=== PATIENT | female | born 1930 | race Two or more races ===

== ENCOUNTER → 2018-08-20 | Outpatient (CLI) | payer OTHER ==
[2018-08-20 13:22] LABS: ABSOLUTE EOSINOPHILS # (AUTO) 0.1 10^3/uL (0.0-0.6); ABSOLUTE LYMPHOCYTES (AUTO) 1.6 10^3/uL (0.5-4.7); ABSOLUTE MONOCYTES (AUTO) 0.4 10^3/uL (0.1-1.4); ABSOLUTE NEUT (AUTO) 3.8 10^3/uL (1.7-8.2); BASOPHILS % (AUTO) 0.7 % (0-2); HEMATOCRIT 41.9 % (36.0-47.0); HEMOGLOBIN 14.2 g/dL (12.0-15.5); LYMPHOCYTES % (AUTO) 27.2 % (13-45); MEAN CORPUSCULAR HEMOGLOBIN 30.1 pg (27.0-33.4); MEAN CORPUSCULAR HGB CONC 33.9 g/dL (32.0-36.0); MEAN CORPUSCULAR VOLUME 89 fl (80-97); MONOCYTES % (AUTO) 6.3 % (3-13); PLATELET COUNT 260 10^3/uL (150-450); RED BLOOD COUNT 4.72 10^6/uL (3.72-5.28); RED CELL DISTRIBUTION WIDTH 12.5 % (11.5-14.0); SEGMENTED NEUTROPHILS % (AUTO) 64.8 % (42-78); TOTAL CELLS COUNTED % (AUTO) 100 %; WHITE BLOOD COUNT 5.8 10^3/uL (4.0-10.5)
[2018-08-20 13:39] LABS: ALANINE AMINOTRANSFERASE 12 U/L (9-52); ALBUMIN 4.4 g/dL (3.5-5.0); ALKALINE PHOSPHATASE 74 U/L (38-126); ANION GAP 11 (5-19); ASPARTATE AMINO TRANSFERASE 15 U/L (14-36); BILIRUBIN,DIRECT 0.2 mg/dL (0.0-0.4); BILIRUBIN,TOTAL 1.5 mg/dL (0.2-1.3); BLOOD UREA NITROGEN 15 mg/dL (7-20); CALCIUM 9.9 mg/dL (8.4-10.2); CARBON DIOXIDE 26 mmol/L (22-30); CHLORIDE 99 mmol/L (98-107); CHOLESTEROL 194.39 mg/dL (0-200); GLUCOSE 321 mg/dL (75-110); POTASSIUM 4.3 mmol/L (3.6-5.0); SODIUM 136.1 mmol/L (137-145); TRIGLYCERIDES 84 mg/dL (<150)
[2018-08-20 13:51] LABS: DIRECT LDL 107 mg/dL (<100)
== END ==
LOC: CCC 12:17
DX: I10 Essential (primary) hypertension (principal)
CPT/HCPCS: 36415; 80053; 80061; 83036; 84443; 85025

== ENCOUNTER 2019-09-22 15:40 | Inpatient (IN) | payer SELFPAY ==
--- NOTE | 2019-09-22 16:02 | ER Document Report ---
ED Medical Screen (RME) - General Chief Complaint: Weakness Stated Complaint: WEAKNESS/ALTERED MENTAL STATUS Time Seen by Provider: 09/22/19 15:57 [facility] - Follow up as needed Mode of Arrival: Wheelchair Information source: Relative Notes: 88-year-old female presented to ED for altered mental status and confusion since since Saturday morning. She did fall on 3 in the morning on Saturday. Son-in-law states that they were able to get her up and she was laughing and then Saturday she started with the confusion. She is a diabetic on insulin. They took her to the [facility] because she does not have insurance this is her primary care. Patient gave her prescription for insulin and testing strips and told her to come to the emergency room due to the confusion. Son-in-law states she did have some trouble eating drinking and was doing some. He states she does have a little bit of trouble swallowing since this incident on Saturday. Son-in-law states that she has been up and walking around and feeding the chicken doing everything until now. Patient has been in the [place] for 11 years has not been taking Chantix for the last 8 years I have greeted and performed a rapid initial assessment of this patient. A comprehensive ED assessment and evaluation of the patient, analysis of test results and completion of medical decision making process will be conducted by an additional ED providers. TRAVEL OUTSIDE OF THE [place] IN LAST 30 DAYS: No - Related Data Allergies/Adverse Reactions: Penicillins Allergy (Verified 09/22/19 15:56) Physical Exam - Vital signs Vitals: Temp Pulse Resp BP Pulse Ox 98.6 F 96 18 121/60 96 09/22/19 15:45 09/22/19 15:45 09/22/19 15:45 09/22/19 15:45 09/22/19 15:45 Course - Vital Signs Vital signs: Temp Pulse Resp BP Pulse Ox 98.6 F 96 18 121/60 96 09/22/19 15:45 09/22/19 15:45 09/22/19 15:45 09/22/19 15:45 09/22/19 15:45 Doctor's Discharge - Discharge [facility]errals: [facility] - Follow up as needed
[2019-09-22 19:05] LABS: INTERNATIONAL RATION (INR) 0.92; PROTHROMBIN TIME 12.4 SEC (11.4-15.4)
[2019-09-22 19:06] LABS: PARTIAL THROMBOPLASTIN TIME 20.5 SEC (23.5-35.8)
[2019-09-22 19:11] LABS: AMORPHOUS SEDIMENT,URINE TRACE /HPF; APPEARANCE,URINE CLOUDY; BILIRUBIN,URINE NEGATIVE (NEGATIVE); COLOR,URINE YELLOW; GLUCOSE, URINE NEGATIVE (NEGATIVE); KETONES,URINE NEGATIVE (NEGATIVE); PROTEIN,URINE NEGATIVE (NEGATIVE); URINE SPECIFIC GRAVITY 1.018; UROBILINOGEN,URINE NEGATIVE mg/dL (<2.0)
[2019-09-22 19:12] LABS: ABSOLUTE BASOPHILS # (AUTO) 0.1 10^3/uL (0.0-0.2); ABSOLUTE EOSINOPHILS # (AUTO) 0.1 10^3/uL (0.0-0.6); ABSOLUTE LYMPHOCYTES (AUTO) 2.2 10^3/uL (0.5-4.7); ABSOLUTE MONOCYTES (AUTO) 0.7 10^3/uL (0.1-1.4); ABSOLUTE NEUT (AUTO) 6.9 10^3/uL (1.7-8.2); BASOPHILS % (AUTO) 0.8 % (0-2); EOSINOPHILS % (AUTO) 0.8 % (0-6); HEMATOCRIT 41.1 % (36.0-47.0); HEMOGLOBIN 14.3 g/dL (12.0-15.5); LYMPHOCYTES % (AUTO) 22.3 % (13-45); MEAN CORPUSCULAR HGB CONC 34.9 g/dL (32.0-36.0); MEAN CORPUSCULAR VOLUME 89 fl (80-97); MONOCYTES % (AUTO) 7.1 % (3-13); PLATELET COUNT 287 10^3/uL (150-450); RED BLOOD COUNT 4.62 10^6/uL (3.72-5.28); RED CELL DISTRIBUTION WIDTH 12.8 % (11.5-14.0); TOTAL CELLS COUNTED % (AUTO) 100 %; WHITE BLOOD COUNT 10.1 10^3/uL (4.0-10.5)
[2019-09-22 19:25] LABS: ALBUMIN 4.2 g/dL (3.5-5.0); ALKALINE PHOSPHATASE 64 U/L (38-126); ANION GAP 8 (5-19); ASPARTATE AMINO TRANSFERASE 33 U/L (14-36); BILIRUBIN,TOTAL 1.1 mg/dL (0.2-1.3); BLOOD UREA NITROGEN 19 mg/dL (7-20); CALCIUM 9.5 mg/dL (8.4-10.2); CARBON DIOXIDE 28 mmol/L (22-30); CHLORIDE 101 mmol/L (98-107); GLUCOSE 121 mg/dL (75-110); POTASSIUM 4.5 mmol/L (3.6-5.0); TOTAL PROTEIN 7.3 g/dL (6.3-8.2)
--- NOTE | 2019-09-22 22:00 | ER Document Report ---
ED General - General Chief Complaint: Weakness Stated Complaint: WEAKNESS/ALTERED MENTAL STATUS Time Seen by Provider: 09/22/19 15:57 Mode of Arrival: Wheelchair TRAVEL OUTSIDE OF THE [place] IN LAST 30 DAYS: No - HPI Onset: Other - several days ago Onset/Duration: Gradual Quality of pain: No pain Severity: Moderate Pain Level: Denies Associated symptoms: Other - left sided weakness, confusion Exacerbated by: Denies Relieved by: Denies Similar symptoms previously: No Recently seen / treated by doctor: No Notes: 88 year old female with a history of HTN, HLD, DM brought in by family for left sided weakness, left sided facial droop, and confusion which started several days ago. The patient apparently fell Saturday when trying to turn the lights in her room on. Her family helped her up and they didnt think much of it since she seemed to be acting normal after the fall. However, over the last several days she has become somewhat confused and has had some left sided weakness, a left sided facial droop, and trouble ambulating which is not normal for her. - Related Data Allergies/Adverse Reactions: Penicillins Allergy (Verified 09/22/19 15:56) Past Medical History - General Information source: Patient, Relative - Social History Smoking Status: Never Smoker Frequency of alcohol use: None Drug Abuse: None Lives with: Family Family History: Reviewed & Not Pertinent Patient has suicidal ideation: No Patient has homicidal ideation: No - Past Medical History Cardiac Medical History: Reports: Hx Hypercholesterolemia, Hx Hypertension Endocrine Medical History: Reports: Hx Diabetes Mellitus Type 2 Review of Systems - Review of Systems Constitutional: No symptoms reported EENT: No symptoms reported Cardiovascular: No symptoms reported Respiratory: No symptoms reported Gastrointestinal: No symptoms reported Genitourinary: No symptoms reported Female Genitourinary: No symptoms reported Musculoskeletal: No symptoms reported Skin: No symptoms reported Hematologic/Lymphatic: No symptoms reported Neurological/Psychological: Confusion, Weakness - left sided, Other - left sided facial droop -: Yes All other systems reviewed and negative Physical Exam - Vital signs Vitals: Temp Pulse Resp BP Pulse Ox 98.6 F 96 18 121/60 96 09/22/19 15:45 09/22/19 15:45 09/22/19 15:45 09/22/19 15:45 09/22/19 15:45 - Notes Notes: GENERAL: Chronically ill-appearing, well-nourished and in no acute distress. HEAD: Atraumatic, normocephalic. EYES: Pupils equal round and reactive to light, extraocular movements intact, sclera anicteric, conjunctiva are normal. ENT: Nares patent, oropharynx clear without exudates. Moist mucous membranes. NECK: Normal range of motion, supple without lymphadenopathy or JVD. LUNGS: Breath sounds clear to auscultation bilaterally and equal. No wheezes rales or rhonchi. HEART: Regular rate and rhythm without murmurs, rubs or gallops. ABDOMEN: Soft, nontender, normoactive bowel sounds. No guarding, no rebound. No masses appreciated. EXTREMITIES: Normal range of motion, no pitting or edema. No clubbing or cyanosis. NEUROLOGICAL: Cranial nerves II through XII grossly intact except for a left sided facial droop. Slightly garbled speech. Left arm falls against gravity some. PSYCH: Normal mood, normal affect. SKIN: Warm, Dry, normal turgor, no rashes or lesions noted. Course - Re-evaluation Re-evalutation: 09/22/19 22:12 The patient has clearly had a stroke on CT. Patient has no history of a previous stroke and her symptoms are consistent with the area of stroke seen on CT. Patient also has a questionable UTI so will culture and treat with Rocephin. 09/22/19 22:[address] was read as a subacute infarct in right basal ganlia and chaparro radiata. Plan to admit for further treatment, care, and work up. - Vital Signs Vital signs: Temp Pulse Resp BP Pulse Ox 98.6 F 96 20 132/77 H 96 09/22/19 15:45 09/22/19 15:45 09/22/19 21:54 09/22/19 21:54 09/22/19 15:45 - Laboratory Result Diagrams: 09/22/19 18:00 09/22/19 18:00 Laboratory results interpreted by me: 09/22/19 09/22/19 09/22/19 18:00 18:00 18:00 APTT 20.5 L Glucose 121 H POC Glucose Urine Blood MODERATE H Leukocyte Esterase Rfl MODERATE H 09/22/19 18:14 APTT Glucose POC Glucose 119 H Urine Blood Leukocyte Esterase Rfl - Diagnostic Test Radiology reviewed: Image reviewed, Reports reviewed Discharge - Discharge Clinical Impression: Stroke Qualifiers: CVA mechanism: unspecified Qualified Code(s): I63.9 - Cerebral infarction, unspecified Disposition: ADMITTED INPATIENT Admitting Provider: Sundar (Hospitalist) Unit Admitted: [facility]
--- NOTE | 2019-09-22 22:24 | RADIOLOGY REPORT (SQ) ---
PROCEDURE: CT brain without contrast Completed date and time: September 22, 2019 9:44 PM CLINICAL HISTORY: 88 years Female Altered mental status confusion, left-sided facial droop and left-sided weakness; patient had a fall couple of days ago COMPARISON: None. TECHNIQUE: Contiguous axial CT images obtained through the brain without IV contrast. This exam was performed according to our department optimization program which includes automated exposure control, adjustment of the mA and/or kv according to patient size and/or use of iterative reconstruction technique. FINDINGS: The ventricles and sulci are prominent consistent with atrophic changes. Microvascular ischemic changes. There is diminished attenuation in the right basal ganglia and chaparro radiata with some mass effect on the lateral ventricle. Findings suggest an area of subacute infarct. No evidence of hemorrhagic transformation. No midline shift. No mass lesions. No acute hemorrhage. Atherosclerotic calcifications. There is opacification of the left maxillary sinus with some sclerosis suggesting chronic sinusitis. No depressed calvarial fractures. IMPRESSION: Findings suggesting an area of developing/subacute infarct involving the right lentiform nuclei caudate nucleus and chaparro radiata with a small amount of mass effect on the lateral ventricle. Findings were discussed with Dr. Valencia at 9:21 PM central time. Chronic left maxillary sinusitis Atrophy with periventricular white matter disease and microvascular ischemic changes
[2019-09-22] MEDS ORDERED: DEXTROSE 50%-WATER 25 GM/50 ML DISP.SYRIN IV PRN ×2 (22:26)
[2019-09-22] MEDS ORDERED: DEXTROSE 40% GEL 15 GM TUBE PO PRN ×2 (22:26)
[2019-09-22] MEDS ORDERED: MAGNESIUM HYDROXIDE SUSP 30 ML UDCUP PO PRN (22:26)
[2019-09-22] MEDS ORDERED: ACETAMINOPHEN 325 MG TABLET PO PRN (22:26)
[2019-09-22] MEDS ORDERED: DOCUSATE SODIUM 100 MG CAPSULE PO PRN (22:26)
[2019-09-22] MEDS ORDERED: GLUCAGON,HUMAN RECOMB 1 MG INJ IM PRN (22:26)
[2019-09-22] MEDS ORDERED: CEFTRIAXONE INJ 1000 MG VIAL IV ONE (23:18)
[2019-09-22 23:39] LABS: INTERNATIONAL RATION (INR) 0.97; PROTHROMBIN TIME 12.9 SEC (11.4-15.4)
[2019-09-23] MEDS: ATORVASTATIN CALCIUM 80 MG TABLET PO SCH ×2 (00:27→23:48)
[2019-09-23] MEDS ORDERED: ASPIRIN 300 MG SUPP, RECTAL PR ONE (00:53)
--- NOTE | 2019-09-23 05:03 | PDOC H&P ---
History of Present Illness Admission Date/PCP: 09/22/19 22:30 [facility]ING PENDING SALE TO [facility] Patient complains of: Slurred speech and weakness History of Present Illness: FREDDIE FITZGERALD is a 88 year old female with a past medical history of hypertension, diabetes and dyslipidemia. She presents to the emergency department after several days of left-sided facial droop and left-sided weakness. CT reveals a subacute CVA of the right lentiform nuclear I and chaparro radiata with small mass-effect. Her history is obtained by the record as she is Mandarin speaking and family members have departed. She is however in no acute distress smiling following commands with gestures. She is ambulatory at baseline. Trial of swallow was unsuccessful with drooling down the left side. There is unclear history of previous or recent change in medications. She is in normal sinus rhythm and referred to the hospitalist for admission. Past Medical History Cardiac Medical History: Reports: Hyperlipidema, Hypertension Endocrine Medical History: Reports: Diabetes Mellitus Type 2 Social History Information Source: [facility] Records Lives with: Family Smoking Status: Never Smoker Drugs: None - Advance Directive Resuscitation Status: Full Code Family History Family History: Other - Unobtainable Parental Family History Reviewed: No - Unobtainable Children Family History Reviewed: No - Unobtainable Sibling(s) Family History Reviewed.: No - Unobtainable Medication/Allergy Home Medications: Amlodipine Besylate [Norvasc 5 mg Tablet] 5 mg PO DAILY 09/23/19 Hydrochlorothiazide 12.5 mg PO DAILY 09/23/19 Insulin NPH Hum/Reg Insulin Hm [Novolin 70-30 Flexpen] 12 units SQ DAILY 09/23/19 Allergies/Adverse Reactions: Penicillins Allergy (Verified 09/22/19 15:56) Review of Systems ROS unobtainable: Due to mental status, Other - Unobtainable Physical Exam Vital Signs: Temp Pulse Resp BP Pulse Ox 98.4 F 79 16 110/49 L 92 09/23/19 04:41 09/23/19 04:41 09/23/19 04:41 09/23/19 04:41 09/23/19 04:00 Intake & Output 09/21/19 09/22/19 09/23/19 11:59 11:59 11:59 Weight 61.5 kg General appearance: PRESENT: no acute distress, cooperative, well-developed, well-nourished Head exam: PRESENT: atraumatic, normocephalic Eye exam: PRESENT: conjunctiva pink, EOMI, PERRLA. ABSENT: scleral icterus Ear exam: PRESENT: normal external ear exam Mouth exam: PRESENT: moist, tongue midline Neck exam: ABSENT: carotid bruit, JVD, lymphadenopathy, thyromegaly Respiratory exam: PRESENT: clear to auscultation miguel ángel. ABSENT: rales, rhonchi, wheezes Cardiovascular exam: PRESENT: RRR. ABSENT: diastolic murmur, rubs, systolic murmur Pulses: PRESENT: normal dorsalis pedis pul Vascular exam: PRESENT: normal capillary refill GI/Abdominal exam: PRESENT: normal bowel sounds, soft. ABSENT: distended, guarding, mass, organolmegaly, rebound, tenderness Rectal exam: PRESENT: deferred Extremities exam: PRESENT: full ROM. ABSENT: calf tenderness, clubbing, pedal edema Musculoskeletal exam: PRESENT: other - 4+ out of 5 strength deficit on the left side Neurological exam: PRESENT: alert. ABSENT: CN II-XII grossly intact - Left- sided facial droop only, normal gait Psychiatric exam: PRESENT: appropriate affect, normal mood. ABSENT: homicidal ideation, suicidal ideation Skin exam: PRESENT: dry, intact, warm. ABSENT: cyanosis, rash Results Laboratory Results: 09/22/19 18:00 09/22/19 18:00 09/22/19 09/22/19 09/22/19 18:00 18:00 18:00 WBC 10.1 RBC 4.62 Hgb 14.3 Hct 41.1 MCV 89 MCH 31.0 MCHC 34.9 RDW 12.8 Plt Count 287 Seg Neutrophils % 69.0 Sodium 137.0 Potassium 4.5 Chloride 101 Carbon Dioxide 28 Anion Gap 8 BUN 19 Creatinine 0.80 Est GFR ( Amer) > 60 Glucose 121 H Calcium 9.5 Total Bilirubin 1.1 AST 33 Alkaline Phosphatase 64 Total Protein 7.3 Albumin 4.2 Urine Color YELLOW Urine Appearance CLOUDY Urine pH 6.0 Ur Specific [place] 1.018 Urine Protein NEGATIVE Urine Glucose (UA) NEGATIVE Urine Ketones NEGATIVE Urine Blood MODERATE H Urine RBC (Auto) 27 09/23/19 00:37 Troponin I < 0.012 Impressions: Head CT 09/22/19 16:03 IMPRESSION: Findings suggesting an area of developing/subacute infarct involving the right lentiform nuclei caudate nucleus and chaparro radiata with a small amount of mass effect on the lateral ventricle. Findings were discussed with Dr. Valencia at 9:21 PM central time. Chronic left maxillary sinusitis Atrophy with periventricular white matter disease and microvascular ischemic changes Assessment and Plan - Diagnosis (1) Stroke Qualifiers: CVA mechanism: unspecified Qualified Code(s): I63.9 - Cerebral infarction, unspecified Is this a current diagnosis for this admission?: Yes Plan: Subacute, out of the window for TPA, follow-up A1c, lipid profile, no echo, carotid or MRI ordered given positive findings would not change treatment. Follow-up physical, occupational and speech therapy. (2) Hypertension Is this a current diagnosis for this admission?: Yes Plan: Permissive hypertension, hydralazine as needed systolic pressure greater than 1 80 (3) Diabetes Is this a current diagnosis for this admission?: Yes Plan: Humalog sliding scale while n.p.o., follow-up A1c (4) Dyslipidemia Is this a current diagnosis for this admission?: Yes Plan: Unsafe swallow, Lipitor held - Time Time Spent with patient: 25-34 minutes - Inpatient Certification Medical Necessity: Need Close Monitoring Due to Risk of Patient Decompensation
[2019-09-23 05:44] LABS: ABSOLUTE BASOPHILS # (AUTO) 0.1 10^3/uL (0.0-0.2); ABSOLUTE EOSINOPHILS # (AUTO) 0.1 10^3/uL (0.0-0.6); ABSOLUTE LYMPHOCYTES (AUTO) 1.3 10^3/uL (0.5-4.7); ABSOLUTE MONOCYTES (AUTO) 0.4 10^3/uL (0.1-1.4); BASOPHILS % (AUTO) 0.7 % (0-2); EOSINOPHILS % (AUTO) 0.7 % (0-6); HEMATOCRIT 39.7 % (36.0-47.0); HEMOGLOBIN 13.6 g/dL (12.0-15.5); LYMPHOCYTES % (AUTO) 16.6 % (13-45); MEAN CORPUSCULAR HEMOGLOBIN 30.6 pg (27.0-33.4); MEAN CORPUSCULAR HGB CONC 34.2 g/dL (32.0-36.0); MEAN CORPUSCULAR VOLUME 89 fl (80-97); MONOCYTES % (AUTO) 4.7 % (3-13); PLATELET COUNT 261 10^3/uL (150-450); RED BLOOD COUNT 4.44 10^6/uL (3.72-5.28); RED CELL DISTRIBUTION WIDTH 12.6 % (11.5-14.0); SEGMENTED NEUTROPHILS % (AUTO) 77.3 % (42-78); TOTAL CELLS COUNTED % (AUTO) 100 %; WHITE BLOOD COUNT 7.8 10^3/uL (4.0-10.5)
[2019-09-23 06:03] LABS: ANION GAP 11 (5-19); BLOOD UREA NITROGEN 17 mg/dL (7-20); CALCIUM 9.1 mg/dL (8.4-10.2); CARBON DIOXIDE 26 mmol/L (22-30); CHLORIDE 101 mmol/L (98-107); CHOLESTEROL 174.09 mg/dL (0-200); GLUCOSE 143 mg/dL (75-110); POTASSIUM 4.1 mmol/L (3.6-5.0); TRIGLYCERIDES 63 mg/dL (<150)
[2019-09-23] MEDS: HEPARIN SOD (PORCINE) 5,000 UNIT/ML 1 ML VIAL SUBCUT SCH ×3 (06:11→23:48)
[2019-09-23 06:14] LABS: DIRECT LDL 109 mg/dL (<100)
--- NOTE | 2019-09-23 08:03 | EKG REPORT ---
SEVERITY:- BORDERLINE ECG - SINUS TACHYCARDIA BORDERLINE T ABNORMALITIES, INFERIOR LEADS : Confirmed by: Shira Meneses MD 23-Sep-2019 08:02:33
[2019-09-23] MEDS: ASPIRIN 325 MG TABLET, ENT COATED PO SCH (10:10)
--- NOTE | 2019-09-23 12:09 | Progress Note ---
Provider Note Provider Note: 09/23/2019 Spoke with the patient son-in-law and daughter this morning. Then we need to make a decision concerning CODE STATUS. Also told him that the first 24 to 36 hours is critical and that the patient could convert to a hemorrhagic infarct, or the existing stroke could become larger. Patient is in the midst of her work-up concerning carotid Dopplers and MRI. She therapy recommends a special diet due to aspiration risk Son-in-law admits that patient's blood pressure has been difficult to control
[2019-09-23] MEDS: INSULIN LISPRO 100 UNIT/ML 3 ML VIAL SUBCUT SCH ×3 (12:57→18:51)
--- NOTE | 2019-09-23 13:03 | RADIOLOGY REPORT (SQ) ---
EXAM DESCRIPTION: MRI HEAD WITHOUT COMPLETED DATE/TIME: 09/23/2019 12:35 pm REASON FOR STUDY: new cva COMPARISON: CT of the head without contrast from 09/22/2019. TECHNIQUE: Multiplanar imaging includes non-contrasted T1, T2, FLAIR, and diffusion with ADC map seq uences. Images stored on PACS. LIMITATIONS: None. FINDINGS: The sella turcica is partially empty. There is no abnormality of the corpus callosum or c raniocervical junction. There is an area of restricted diffusion that encompasses the right lentiform nucleus, caudate nucleu s and chaparro radiata ; the area demonstrates increased signal on the FLAIR and T2 sequences. The confluent areas of high T2/FLAIR signal within the supratentorial periventricular and subcortical white matter correspond to the areas of low attenuation on the CT and could represent the sequela of chronic microvascular ischemia. There is no acute intracranial hemorrhage, extra-axial fluid collection, mass or midline shift. Ther e is no effacement of the basal subarachnoid cisterns. The caliber the ventricles is concordant with the degree of sulcation. The right globe is aphakic. The left maxillary sinus is opacified. IMPRESSION: Area of restricted diffusion that encompasses the right lentiform nucleus, caudate nucle us and chaparro radiata ; the area demonstrates increased signal on the FLAIR and T2 sequences and is c onsistent with an acute infarct. EVIDENCE OF ACUTE STROKE: YES. TECHNICAL DOCUMENTATION: JOB ID: [id number] [employer]- All Rights Reserved Reading location - IP/workstation name: [email or web address]
--- NOTE | 2019-09-23 18:00 | RADIOLOGY REPORT (SQ) ---
EXAM DESCRIPTION: CAROTID DOPPLER COMPLETED DATE/TIME: 09/23/2019 5:49 pm REASON FOR STUDY: new cva COMPARISON: None. TECHNIQUE: Grayscale ultrasound, Doppler velocity and spectra, and color Doppler images acquired of the extra-cranial carotid and vertebral arteries. Images stored on PACS. LIMITATIONS: None. FINDINGS: RIGHT CAROTID CCA Velocities: Within normal limits. ICA Velocities Peak systolic 0.78 m/s. End diastolic 0.16 m/s. Proximal ICA/CCA peak systolic ratio 1.3. Scattered plaque. LEFT CAROTID CCA Velocities: Within normal limits. ICA Velocities Peak systolic 0.83 m/s. End diastolic 0.19 m/s. Proximal ICA/CCA peak systolic ratio 1.1. Scattered plaque. VERTEBRAL ARTERIES: Antegrade flow. Normal waveforms. SUBCLAVIAN ARTERIES: No finding. OTHER: No other significant finding. IMPRESSION: NO HEMODYNAMICALLY SIGNIFICANT STENOSIS. COMMENT: Quality ID #[id number]: Velocity criteria are extrapolated from the diameter data as defined by t sharad Society of Radiologists in Ultrasound Consensus Conference. Radiology 2003: 229; 340-346. TECHNICAL DOCUMENTATION: JOB ID: [id number] [employer]- All Rights Reserved Reading location - IP/workstation name: [email or web address]
[2019-09-24] MEDS: HEPARIN SOD (PORCINE) 5,000 UNIT/ML 1 ML VIAL SUBCUT SCH ×2 (06:11→14:03)
[2019-09-24] MEDS: INSULIN LISPRO 100 UNIT/ML 3 ML VIAL SUBCUT SCH ×3 (09:20→16:14)
[2019-09-24] MEDS: ASPIRIN 325 MG TABLET, ENT COATED PO SCH (09:49)
--- NOTE | 2019-09-24 13:32 | PDOC PROGRESS REPORT ---
Subjective Progress Note for:: 09/24/19 Reason For Visit: CVA DIABETES 09/24/2019 Extensive CVA, diabetes hypertension, dis-lipidemia Physical Exam Vital Signs: Temp Pulse Resp BP Pulse Ox 97.3 F 74 14 129/56 H 91 L 09/24/19 07:55 09/24/19 08:00 09/24/19 08:00 09/24/19 08:00 09/24/19 08:00 Intake & Output 09/23/19 09/24/19 09/25/19 06:59 06:59 06:59 Intake Total 0 340 Output Total 475 500 Balance -475 -160 Weight 61.5 kg 62.1 kg General appearance: PRESENT: no acute distress Respiratory exam: PRESENT: clear to auscultation miguel ángel. ABSENT: rales, rhonchi, wheezes Cardiovascular exam: PRESENT: RRR. ABSENT: diastolic murmur, rubs, systolic murmur Neurological exam: PRESENT: alert, oriented to person, oriented to place, oriented to time, oriented to situation, other - Patient appears to have residual left facial weakness Psychiatric exam: PRESENT: appropriate affect, normal mood. ABSENT: homicidal ideation, suicidal ideation Results Laboratory Results: 09/23/19 05:33 09/23/19 05:33 09/22/19 18:00 Clean Catch Midstream Urine Culture - Final Mixed Urogenital Marialuisa 09/23/19 00:37 Troponin I < 0.012 Impressions: Head CT 09/22/19 16:03 IMPRESSION: Findings suggesting an area of developing/subacute infarct involving the right lentiform nuclei caudate nucleus and chaparro radiata with a small amount of mass effect on the lateral ventricle. Findings were discussed with Dr. Valencia at 9:21 PM central time. Chronic left maxillary sinusitis Atrophy with periventricular white matter disease and microvascular ischemic changes Carotid Doppler Study 09/23/19 00:00 IMPRESSION: NO HEMODYNAMICALLY SIGNIFICANT STENOSIS. Head MRI 09/23/19 00:00 IMPRESSION: Area of restricted diffusion that encompasses the right lentiform nucleus, caudate nucleus and chaparro radiata ; the area demonstrates increased signal on the FLAIR and T2 sequences and is consistent with an acute infarct. EVIDENCE OF ACUTE STROKE: YES. Assessment and Plan - Diagnosis (1) Diabetes Is this a current diagnosis for this admission?: Yes (2) Dyslipidemia Is this a current diagnosis for this admission?: Yes (3) Hypertension Is this a current diagnosis for this admission?: Yes (4) Stroke Qualifiers: CVA mechanism: unspecified Qualified Code(s): I63.9 - Cerebral infarction, unspecified Is this a current diagnosis for this admission?: Yes - Plan Summary Summary: 09/24/2019 Eitel signs are stable temperature 97.3, pulse 74 blood pressure running anywhere from 130/71-167/91. Patient's admission blood pressure looks to be about 130/70 Oxygen saturation is going anywhere from 91-97 on room air Globin A1c was 6.7 Urine culture showed only mixed marialuisa Carotid Dopplers are grossly normal showing no signs of significant stenosis. MRI of the brain showed ischemic infarct of the right lentiform nucleus the caudate nucleus consistent with acute infarct Unfortunately patient's daughter speaks only broken Tajik and I am waiting for her to come in this afternoon. Patient appears to be medically stable for discharge. Discharge home on aspirin, statin, well as her insulin and Norvasc and HCTZ Patient's motor deficit is improving, and facial weakness is significantly better as well - Time Time Spent with patient: 25-34 minutes
--- NOTE | 2019-09-24 15:44 | PDOC DISCHARGE SUMMARY ---
Impression - Admit/DC Date/PCP Admission Date/Primary Care Provider: 09/22/19 22:30 [facility] Discharge Date: 09/24/19 - Discharge Diagnosis (1) Diabetes Is this a current diagnosis for this admission?: Yes (2) Dyslipidemia Is this a current diagnosis for this admission?: Yes (3) Hypertension Is this a current diagnosis for this admission?: Yes (4) Stroke Is this a current diagnosis for this admission?: Yes - Assessment Summary: 09/24/2019 Eitel signs are stable temperature 97.3, pulse 74 blood pressure running anywhere from 130/71-167/91. Patient's admission blood pressure looks to be about 130/70 Oxygen saturation is going anywhere from 91-97 on room air Globin A1c was 6.7 Urine culture showed only mixed marialuisa Carotid Dopplers are grossly normal showing no signs of significant stenosis. MRI of the brain showed ischemic infarct of the right lentiform nucleus the caudate nucleus consistent with acute infarct Unfortunately patient's daughter speaks only broken [place] and I am waiting for her to come in this afternoon. Patient appears to be medically stable for discharge. Discharge home on aspirin, statin, well as her insulin and Norvasc and HCTZ Patient's motor deficit is improving, and facial weakness is significantly better as well Patient's family would like to take her home. Patient's work-up has been completed. Patient was discharged with aspirin 325 mg daily, Lipitor 80 mg daily, plus her other regular medications for blood pressure and diabetes. Patient is medically stable and has no evidence of stroke in evolution or hemorrhage - Additional Information Resuscitation Status: Full Code Discharge Diet: Diabetic Discharge Activity: Activity As Tolerated Referrals: [facility],BR[facility]ANE[facility] [Primary Care Provider] - 09/28/19 3:00 pm Prescriptions: Atorvastatin Calcium [Lipitor 80 mg Tablet] 80 mg PO QHS 30 Days #30 tablet Home Medications: Amlodipine Besylate [Norvasc 5 mg Tablet] 5 mg PO DAILY 09/23/19 Hydrochlorothiazide 12.5 mg PO DAILY 09/23/19 Insulin NPH Hum/Reg Insulin Hm [Novolin 70-30 Flexpen] 12 units SQ QAM 09/23/19 Aspirin [Ecotrin 325 mg EC Tablet] 325 mg PO DAILY tabec 09/24/19 Atorvastatin Calcium [Lipitor 80 mg Tablet] 80 mg PO QHS 30 Days #30 tablet 09/24/19 History of Present Illiness History of Present Illness: FREDDIE FITZGERALD is a 88 year old female Physical Exam Vital Signs: Temp Pulse Resp BP Pulse Ox 97.5 F 82 16 121/52 L 92 09/24/19 10:58 09/24/19 10:58 09/24/19 10:58 09/24/19 10:58 09/24/19 10:58 Intake & Output 09/23/19 09/24/19 09/25/19 06:59 06:59 06:59 Intake Total 0 340 Output Total 475 500 Balance -475 -160 Weight 61.5 kg 62.1 kg Results Laboratory Results: WBC 7.8 10^3/uL (4.0-10.5) 09/23/19 05:33 RBC 4.44 10^6/uL (3.72-5.28) 09/23/19 05:33 Hgb 13.6 g/dL (12.0-15.5) 09/23/19 05:33 Hct 39.7 % (36.0-47.0) 09/23/19 05:33 MCV 89 fl (80-97) 09/23/19 05:33 MCH 30.6 pg (27.0-33.4) 09/23/19 05:33 MCHC 34.2 g/dL (32.0-36.0) 09/23/19 05:33 RDW 12.6 % (11.5-14.0) 09/23/19 05:33 Plt Count 261 10^3/uL (150-450) 09/23/19 05:33 Lymph % (Auto) 16.6 % (13-45) 09/23/19 05:33 [place] % (Auto) 4.7 % (3-13) 09/23/19 05:33 Eos % (Auto) 0.7 % (0-6) 09/23/19 05:33 Baso % (Auto) 0.7 % (0-2) 09/23/19 05:33 Absolute Neuts (auto) 6.0 10^3/uL (1.7-8.2) 09/23/19 05:33 Absolute Lymphs (auto) 1.3 10^3/uL (0.5-4.7) 09/23/19 05:33 Absolute Monos (auto) 0.4 10^3/uL (0.1-1.4) 09/23/19 05:33 Absolute Eos (auto) 0.1 10^3/uL (0.0-0.6) 09/23/19 05:33 Absolute Basos (auto) 0.1 10^3/uL (0.0-0.2) 09/23/19 05:33 Seg Neutrophils % 77.3 % (42-78) 09/23/19 05:33 PT 12.9 SEC (11.4-15.4) 09/22/19 23:22 INR 0.97 09/22/19 23:22 APTT 20.5 SEC (23.5-35.8) L 09/22/19 18:00 Sodium 138.0 mmol/L (137-145) 09/23/19 05:33 Potassium 4.1 mmol/L (3.6-5.0) 09/23/19 05:33 Chloride 101 mmol/L (98-107) 09/23/19 05:33 Carbon Dioxide 26 mmol/L (22-30) 09/23/19 05:33 Anion Gap 11 (5-19) 09/23/19 05:33 BUN 17 mg/dL (7-20) 09/23/19 05:33 Creatinine 0.52 mg/dL (0.52-1.25) 09/23/19 05:33 Est GFR ( Amer) > 60 (>60) 09/23/19 05:33 Est GFR (MDRD) Non-Af > 60 (>60) 09/23/19 05:33 Glucose 143 mg/dL (75-110) H 09/23/19 05:33 POC Glucose 171 mg/dL (70-110) H 09/24/19 10:58 Hemoglobin A1c % 6.7 % (4.7-6.0) H 09/23/19 05:33 Calcium 9.1 mg/dL (8.4-10.2) 09/23/19 05:33 Total Bilirubin 1.1 mg/dL (0.2-1.3) 09/22/19 18:00 Direct Bilirubin 0.0 mg/dL (0.0-0.4) 09/22/19 18:00 Neonat Total Bilirubin Not Reportable 09/22/19 18:00 Neonat Direct Bilirubin Not Reportable 09/22/19 18:00 Neonat Indirect Bili Not Reportable 09/22/19 18:00 AST 33 U/L (14-36) 09/22/19 18:00 ALT 19 U/L (<35) 09/22/19 18:00 Alkaline Phosphatase 64 U/L (38-126) 09/22/19 18:00 Troponin I < 0.012 ng/mL 09/23/19 00:37 Total Protein 7.3 g/dL (6.3-8.2) 09/22/19 18:00 Albumin 4.2 g/dL (3.5-5.0) 09/22/19 18:00 Triglycerides 63 mg/dL (<150) 09/23/19 05:33 Cholesterol 174.09 mg/dL (0-200) 09/23/19 05:33 LDL Cholesterol Direct 109 mg/dL (<100) H 09/23/19 05:33 VLDL Cholesterol 13.0 mg/dL (10-31) 09/23/19 05:33 HDL Cholesterol 53 mg/dL (>40) 09/23/19 05:33 Urine Color YELLOW 09/22/19 18:00 Urine Appearance CLOUDY 09/22/19 18:00 Urine pH 6.0 (5.0-9.0) 09/22/19 18:00 Ur Specific [place] 1.018 09/22/19 18:00 Urine Protein NEGATIVE mg/dL (NEGATIVE) 09/22/19 18:00 Urine Glucose (UA) NEGATIVE mg/dL (NEGATIVE) 09/22/19 18:00 Urine Ketones NEGATIVE mg/dL (NEGATIVE) 09/22/19 18:00 Urine Blood MODERATE (NEGATIVE) H 09/22/19 18:00 Urine Nitrite (Reflex) NEGATIVE (NEGATIVE) 09/22/19 18:00 Urine Bilirubin NEGATIVE (NEGATIVE) 09/22/19 18:00 Urine Urobilinogen NEGATIVE mg/dL (<2.0) 09/22/19 18:00 Leukocyte Esterase Rfl MODERATE (NEGATIVE) H 09/22/19 18:00 Urine RBC (Auto) 27 /HPF 09/22/19 18:00 Urine Bacteria (Auto) TRACE /HPF 09/22/19 18:00 Urine WBC (Reflex) 57 /HPF 09/22/19 18:00 Squamous Epi Cells Auto 1 /HPF 09/22/19 18:00 Amorphous Sediment Auto TRACE /HPF 09/22/19 18:00 Urine Mucus (Auto) OCC /LPF 09/22/19 18:00 Urine Ascorbic Acid NEGATIVE (NEGATIVE) 09/22/19 18:00 09/23/19 00:37 Troponin I < 0.012 Impressions: Head CT 09/22/19 16:03 IMPRESSION: Findings suggesting an area of developing/subacute infarct involving the right lentiform nuclei caudate nucleus and chaparro radiata with a small amount of mass effect on the lateral ventricle. Findings were discussed with Dr. Valencia at 9:21 PM central time. Chronic left maxillary sinusitis Atrophy with periventricular white matter disease and microvascular ischemic changes Carotid Doppler Study 09/23/19 00:00 IMPRESSION: NO HEMODYNAMICALLY SIGNIFICANT STENOSIS. Head MRI 09/23/19 00:00 IMPRESSION: Area of restricted diffusion that encompasses the right lentiform nucleus, caudate nucleus and chaparro radiata ; the area demonstrates increased signal on the FLAIR and T2 sequences and is consistent with an acute infarct. EVIDENCE OF ACUTE STROKE: YES. Stroke Is this a Stroke Patient?: Yes Stroke Pt being discharged on Anti-thrombolytic therapy?: No Reason(s) for not prescribing Anti-thrombolytic therapy:: Not indicated Stroke Pt being discharged on Anti-coagulation therapy?: Yes Stroke Pt being discharged on Statins?: Yes Acute Heart Failure - Is this a Heart Failure Patient?: No
[2019-09-24 16:48] VITALS: BP 153/64
== END 2019-09-24 17:56 | disposition home or self-care (01) | DRG 66 ==
LOC: ER 15:40 → EH 22:30 → 3W 09-23 01:34
PROVIDERS: ADMIT Internal Medicine; ATTEND Internal Medicine
DX: I63.89 Other cerebral infarction (principal); R29.810 Facial weakness; R53.1 Weakness; E78.5 Hyperlipidemia, unspecified; I10 Essential (primary) hypertension; E11.9 Type 2 diabetes mellitus without complications; Z91.81 History of falling; Z88.0 Allergy status to penicillin; Z79.4 Long term (current) use of insulin; Z79.899 Other long term (current) drug therapy; Z79.82 Long term (current) use of aspirin
CPT/HCPCS: 36415; 70450; 70551; 80048; 80053; 80061; 81001; 82962; 83036; 84484; 85025; 85610; 85730; 87086; 93005; 93010; 93880; 99285; J0696; J1644; J1815; J3490

== ENCOUNTER → 2019-10-30 | Outpatient (CLI) | payer MEDICAID, OTHER ==
[2019-10-30 14:01] LABS: ALBUMIN 3.7 g/dL (3.5-5.0); ALKALINE PHOSPHATASE 88 U/L (38-126); ASPARTATE AMINO TRANSFERASE 44 U/L (14-36); BILIRUBIN,TOTAL 2.3 mg/dL (0.2-1.3); TOTAL PROTEIN 6.7 g/dL (6.3-8.2)
== END ==
LOC: CCC 12:50
DX: Z09 Encounter for follow-up examination after completed treatment for conditions other than malignant neoplasm (principal); Z86.73 Personal history of transient ischemic attack (TIA), and cerebral infarction without residual deficits
CPT/HCPCS: 36415; 80076